=== PATIENT | male | born 1950 | race Two or more races ===

== ENCOUNTER 2018-06-18 14:40 | Emergency (ER) | payer OTHER ==
[2018-06-18 14:58] VITALS: BP 142/82
--- NOTE | 2018-06-18 15:08 | EDPHY ---
H & P Stated Complaint: b knees popped a week ago while walking dog and fell Time Seen by Provider: 06/18/18 15:03 HPI/ROS: CHIEF COMPLAINT: Bilateral knee pain for 2 weeks HISTORY OF PRESENT ILLNESS: Patient is a 68-year-old man who comes to the emergency department complaining of bilateral knee pain. He has pain just to the medial aspect of his patellar tendons bilaterally. He states that the pain began 2 weeks ago when he was walking his dog and the dog chased after an animal and he had to restrain the dog. He states that he felt his knees pop and has had pain ever since that time. He did not fall. He has continued to ambulate. He has pain with palpation just to the medial aspect of the patellar tendon. No visible swelling or deformity. No erythema. Severity: Moderate Modifying factors: Worsened with palpation. Not worsened by weight-bearing REVIEW OF SYSTEMS: Constitutional: denies: chills, fever, recent illness, recent injury EENTM: denies: blurred vision, double vision, nose congestion Respiratory: denies: cough, shortness of breath Cardiac: denies: chest pain, irregular heart rate, lightheadedness, palpitations Gastrointestinal/Abdominal: denies: abdominal pain, diarrhea, nausea, vomiting, blood streaked stools Genitourinary: denies: dysuria, frequency, hematuria, pain Musculoskeletal: See HPI Skin: denies: lesions, rash, jaundice, bruising Neurological: denies: headache, numbness, paresthesia, tingling, dizziness, weakness Hematologic/Lymphatic: denies: blood clots, easy bleeding, easy bruising Immunologic/allergic: denies: HIV/AIDS, transplant 10 systems reviewed and negative except as noted EXAM: GENERAL: Well-appearing, well-nourished and in no acute distress. HEAD: Atraumatic, normocephalic. EYES: Pupils equal round and reactive to light, extraocular movements intact, sclera anicteric, conjunctiva are normal. ENT: TMs normal, nares patent, oropharynx clear without exudates. Moist mucous membranes. NECK: Normal range of motion, supple without lymphadenopathy or JVD. LUNGS: Breath sounds clear to auscultation bilaterally and equal. No wheezes rales or rhonchi. HEART: Regular rate and rhythm without murmurs, rubs or gallops. ABDOMEN: Soft, nontender, normoactive bowel sounds. No guarding, no rebound. No masses appreciated. BACK: No CVA tenderness, no spinal tenderness, step-offs or deformities EXTREMITIES: Bilateral knee pain, exquisitely tender to medial aspect of tibial plateau. No visible swelling or deformity. NEUROLOGICAL: Cranial nerves II through XII grossly intact. Normal speech, normal gait. 5/5 strength, normal movement in all extremities, normal sensation , normal reflexes PSYCH: Normal mood, normal affect. SKIN: Warm, dry, normal turgor, no visible rashes or lesions. Source: Patient Exam Limitations: No limitations - Personal History Current Tetanus Diphtheria and Acellular Pertussis (TDAP): Yes Tetanus Vaccine Date: 2017 - Medical/Surgical History Hx Asthma: No Hx Chronic Respiratory Disease: No Hx Diabetes: Yes Hx Cardiac Disease: No Hx Renal Disease: No Hx Cirrhosis: No Hx Alcoholism: No Other PMH: left ankle surgery. DM2. 4 stents in heart - Family History Significant Family History: No pertinent family hx - Social History Smoking Status: Former smoker Alcohol Use: None Constitutional: Initial Vital Signs Temperature (C) 36.4 C 06/18/18 14:50 Heart Rate 87 06/18/18 14:50 Respiratory Rate 16 06/18/18 14:50 Blood Pressure 142/82 H 06/18/18 14:50 O2 Sat (%) 94 06/18/18 14:50 O2 Delivery Mode Room Air Allergies/Adverse Reactions: amoxicillin [Amoxicillin] Allergy (Severe, Verified 06/18/18 14:50) Unknown erythromycin base [From E-Mycin] Allergy (Severe, Verified 06/18/18 14:50) Unknown Penicillins Allergy (Verified 06/18/18 14:50) Home Medications: Medication Instructions Recorded NK [No Known Home Meds] 06/18/18 Medical Decision Making Procedures: Procedure: Splint placement. A Tino wrap was applied 2 each knee. After application of the splint I returned and re-examined the patient. The splint was adequately immobilizing the joint and distal to the splint the patient's circulation and sensation was intact. ED Course/Re-evaluation: The patient is able to ambulate has been doing so for 2 weeks. He has tenderness to the medial plateau. I did offer to obtain x-rays but discussed with him the limitations of x-ray imaging. He declines x-rays. I feel that he will benefit more from a referral to orthopedist and possibly MRI. His symptoms and exam are more consistent with a meniscal type injury or possibly ligamentous. They are not acute. His symptoms have not worsened today. He has been ambulating without significant difficulty. He agreed with this and declines further workup or testing at this time. Differential Diagnosis: Partial list of the Differential diagnosis considered include but were not limited to; meniscal injury, ligamentous injury, effusion and although unlikely based on the history and physical exam, I also considered fracture, dislocation, vascular injury, nerve injury. I discussed these differential diagnoses and the plan with the patient as well as the usual and expected course. The patient understands that the diagnosis is provisional and that in medicine we are not always correct and that further workup is often warranted. Usual and customary warnings were given. All of the patient's questions were answered. The patient was instructed to return to the emergency department should the symptoms at all worsen or return, otherwise to followup with the physician as we discussed. Departure - Departure Disposition: Home, Routine, Self-Care Clinical Impression: Knee pain, bilateral Qualifiers: Chronicity: unspecified Qualified Code(s): M25.561 - Pain in right knee; M25.562 - Pain in left knee; M25.562 - Pain in left knee Condition: Fair Instructions: Knee Pain (ED) Referrals: NONE *PRIMARY CARE P,. [Primary Care Provider] - As per Instructions Ashvin Smith MD [Medical Doctor] - As per Instructions Ashvin Dominguez MD [Medical Doctor] - As per Instructions
== END 2018-06-18 15:45 | disposition home or self-care (01) ==
LOC: CED 14:40
DX: M25.561 Pain in right knee (principal); M25.562 Pain in left knee; W54.8XXA Other contact with dog, initial encounter; Y93.K1 Activity, walking an animal; Y92.480 Sidewalk as the place of occurrence of the external cause
CPT/HCPCS: 99282-ER